=== PATIENT | male | born 1990 | race Caucasian/White ===

== ENCOUNTER 2018-12-03 06:03 | Emergency (ER) | payer OTHER ==
[~2018-12-03] VITALS: Ht 185.4 cm; Wt 116.3 kg
[2018-12-03 06:08] VITALS: Ht 185.4 cm; Wt 116.3 kg
[2018-12-03 07:10] VITALS: BP 126/71
== END 2018-12-03 07:10 | disposition home or self-care (01) ==
LOC: ED 06:03
DX: S61.011A Laceration without foreign body of right thumb without damage to nail, initial encounter (principal); W45.8XXA Other foreign body or object entering through skin, initial encounter; Y93.89 Activity, other specified; Y92.810 Car as the place of occurrence of the external cause; Y99.8 Other external cause status
CPT/HCPCS: J2001